=== PATIENT | female | born 1945 | race Caucasian/White ===

== ENCOUNTER 2016-10-05 01:21 | Inpatient (IN) | payer MEDICARE ==
[2016-10-05] VITALS (17 sets, daily range): BP systolic 116–172; BP diastolic 58–82; PULSE 80–94; RESP 16–20; TEMP 95.9–98.7; O2SAT 95–100
[~2016-10-05] VITALS: Ht 152.4 cm; Wt 52.2 kg
[~2016-10-05 01:21] MED LIST: ALPR.25 PO; AMBI10TA PO; CELE200C PO; CYMB30CA PO; DILA4TAB10 PO; FIORCAP6 PO; GABA600T PO; META800T81 PO; MILN50 PO; PREV15CA20 PO; [UNRECOGNIZED DRUG - CODE] OU
[2016-10-05] MEDS ORDERED: SODIUM CHLOR 0.9% 1000 ML INJ 1,000 ML IV SCH (01:45)
[2016-10-05] MEDS ORDERED: ESTR.3 PO (01:45)
[2016-10-05] MEDS ORDERED: MILN50 PO (01:45)
[2016-10-05] MEDS ORDERED: AMIT10TA6 PO (01:45)
[2016-10-05] MEDS ORDERED: MORPHINE SULFATE 4 MG/ML INJ IV PUSH ONE ×2 (01:45→03:45)
[2016-10-05] MEDS ORDERED: CELE200C PO (01:45)
[2016-10-05] MEDS ORDERED: XANA2TAB2 PO (01:45)
[2016-10-05] MEDS ORDERED: META800T81 PO (01:45)
[2016-10-05] MEDS ORDERED: DILA4TAB2 PO (01:45)
[2016-10-05] MEDS ORDERED: BUTA1CAP2 PO (01:45)
[2016-10-05] MEDS ORDERED: CYMB30CA PO (01:45)
[2016-10-05] MEDS ORDERED: AMBI10TA PO (01:45)
[2016-10-05] MEDS ORDERED: PREV30CA11 PO (01:45)
[2016-10-05] MEDS ORDERED: ONDANSETRON HCL 4 MG/2 ML VIAL IV PUSH ONE (01:45)
[2016-10-05] MEDS ORDERED: NEUR600T PO (01:45)
--- NOTE | 2016-10-05 02:22 | PD ---
HPI Chief Complaint: Fall Time Seen by Provider: 01:27 Travel History International Travel<30 days: No Contact w/Intl Traveler<30days: No Traveled to known affect area: No History of Present Illness HPI The patient is a 71 year old female who presents to the [facility] emergency department with a history of reportedly slipping and falling when she attempted to get up to go the bathroom prior to arrival. She reports that the carpet slipped out from under her. She landed on her right side. She reports that she now has right hip and right knee pain. The patient was brought in by ambulance services. The patient reportedly had shortening and external rotation of the right lower extremity. The patient denies hitting her head or losing consciousness. She denies having any neck pain, paresthesias, or weakness of her extremities. The patient was given 4 of morphine IV prior to arrival. Her sugar prior to arrival was reportedly 90. The patient reports that she does have a history of chronic back pain and is on pain medication at home, however she has not taken any since 5 PM yesterday. I review of systems, the patient denies any recent fevers, cough, congestion, neck pain, chest pain, shortness of breath, abdominal pain, vomiting, diarrhea, urinary symptoms, or neurologic symptoms. PFSH Past Medical History Narrative Medical The patient's past medical history is significant for acid reflux, anxiety disorder, fibromyalgia, chronic back pain, prior history of cerebrovascular accident, depression, migraine headaches, sleep apnea. Hx Anticoagulant Therapy: Yes (81 MG. ASA DAILY) Autoimmune Disease: No Blood Disorders: No Anxiety: Yes Depression: Yes Heart Rhythm Problems: No Cancer: No Cardiovascular Problems: No Cerebrovascular Accident: Yes Diabetes: No Diminished Hearing: No Endocrine: No Gastrointestinal Disorders: Yes (reflux) Genitourinary: No Hepatitis: No Hiatal Hernia: No Hypertension: No Immune Disorder: Yes (fibromyalgia) Musculoskeletal: Yes (arthritis all over body neck and back problems ) Neurologic: Yes (tingling right arm and hand occ right foot migraines) Psychiatric: Yes (anxiety/depression) Reproductive: No Respiratory: Yes (sleep apnea, NO CPAP) Migraines: Yes Thyroid Disease: No Tetanus Vaccination: < 5 Years Influenza Vaccination: No ?: Not Past Surgical History Narrative Surgical The patient's past surgical history is significant for hysterectomy, corneal transplant, hemorrhoidectomy, low back surgery 2, bilateral foot surgery, right shoulder surgery, right knee arthroscopy, sinus surgery, tonsil and adenoidectomy. AICD: No Body Medical Devices: hardware in the feet hardware in the spine Eye Surgery: Yes (corneal transplant once in the right eye 2 in the left eye, cataract nader.) Genitourinary Surgery: Yes (hemorroidectomy) Gynecologic Surgery: Yes (hysterectomy) Hysterectomy: Yes Joint Replacement: No Neurologic Surgery: Yes (BACK SURGERIES X 2) Oral Surgery: Yes (sinus surgery t and a) Pacemaker: No Tonsillectomy: Yes Other Surgery: Yes Social History Alcohol Use: No Tobacco Use: No Substance Use: No Allergies-Medications (Allergen,Severity, Reaction): Coded Allergies: No Known Allergies (Verified , 11/11/15) Reported Meds & Prescriptions Reported Meds & Active Scripts Active Percocet (Oxycodone-Acetaminophen) 5-325 mg Tab 1 Tab PO Q4H PRN Reported Premarin (Estrogens Conjugated) 0.3 Mg Tab 0.3 Mg PO DAILY Amitriptyline (Amitriptyline HCl) 10 Mg Tab 10 Mg PO HS Fioricet-Codeine (Nzndejlyqm-Vymyusiykbjsg-Bgjeyset-Codeine) 14-503-00-30 Mg Cap 1-2 Cap PO Q4H PRN Do not exceed 6 capsules/day. Savella (Milnacipran) 50 Mg Tab 50 Mg PO BID Cymbalta DR (Duloxetine HCl) 30 Mg Capdr 30 Mg PO HS Ambien (Zolpidem Tartrate) 10 Mg Tab 10 Mg PO HS PRN Celebrex (Celecoxib) 200 Mg Cap 200 Mg PO DAILY Prevacid (Lansoprazole) 30 Mg Capdr 30 Mg PO DAILY Skelaxin (Metaxalone) 800 Mg Tab 800 Mg PO TID Xanax (Alprazolam) 2 Mg Tab 2.5 Mg PO Q6HR Dilaudid (Hydromorphone HCl) 4 Mg Tab 4 Mg PO QID Neurontin (Gabapentin) 600 Mg Tab 600 Mg PO TID Review of Systems Except as stated in HPI: all other systems reviewed are Neg General / Constitutional: No: Fever Eyes: No: Visual changes HENT: No: Headaches, Neck Stiffness, Neck Pain Cardiovascular: No: Chest Pain or Discomfort Respiratory: No: Shortness of Breath Gastrointestinal: No: Abdominal Pain Genitourinary: No: Dysuria Musculoskeletal: Positive: Myalgias, Arthralgias, Limited ROM, Pain Skin: No Rash Neurologic: No: Weakness, Focal Abnormalities, Headache, Change in Mentation, Slurred Speech, Paresthesia Psychiatric: No: Depression Endocrine: No: Polydipsia Hematologic/Lymphatic: No: Easy Bruising Physical Exam Narrative General: The patient is a well-developed well-nourished female, uncomfortable appearing on arrival with her right hip slightly flexed, knee propped up on a pillow with shortening and external rotation of the right lower extremity noted. Head and Neck exam: Head is normocephalic atraumatic. Eyes: EOMI, pupils are equal round and reactive to light. Nose: Midline septum with pink mucous membranes Mouth: Dentition unremarkable. Moist mucus membranes. Posterior oropharynx is not erythematous. No tonsillar hypertrophy. Uvula midline. Airway patent. Neck: No palpable lymphadenopathy. No nuchal rigidity. No thyromegaly. Cardiovascular: Regular rate and rhythm without murmurs, gallops, or rubs. Lungs: Clear to auscultation bilaterally. No wheezes, rhonchi, or rales. Abdomen: Soft, without tenderness to palpation in all 4 quadrants of the abdomen. No guarding, rebound, or rigidity. Normal bowel sounds are audible. No tenderness on palpation of McBurney's point. Extremities: No clubbing, cyanosis, or edema. 2+ pulses in all 4 extremities. The patient has pain in the right groin on palpation. The patient has shortening and external rotation of the right lower extremity. The patient reports having right lateral knee pain on palpation. There is no crepitus or step off involving the right knee, right tib-fib, right ankle or right foot. The patient has decreased range of motion of the right hip. Neurologic Exam: Grossly nonfocal. Skin Exam: No rash noted. Intact skin that is warm and dry. RECTAL EXAM: No masses or tenderness, stool is brown. Hemaprompt was negative for blood. Control was positive. Data Data Last Documented VS Vital Signs Date Time Temp Pulse Resp B/P Pulse Ox O2 Delivery O2 Flow Rate FiO2 10/05/16 03:15 90 18 143/69 95 Room Air 10/05/16 01:25 98.1 Orders Electrocardiogram (10/05/16 01:37) Complete Blood Count With Diff (10/05/16 01:37) Comprehensive Metabolic Panel (10/05/16 01:37) Creatine Kinase (Cpk) (10/05/16 01:37) Ckmb (Isoenzyme) Profile (10/05/16 01:37) Troponin I (10/05/16 01:37) B-Type Natriuretic Peptide (10/05/16 01:37) Prothrombin Time / Inr (Pt) (10/05/16 01:37) Act Partial Throm Time (Ptt) (10/05/16 01:37) Urinalysis - C+S If Indicated (10/05/16 01:37) Chest, Single Ap (10/05/16 01:37) Iv Access Insert/Monitor (10/05/16 01:37) Ecg Monitoring (10/05/16 01:37) Oximetry (10/05/16 01:37) Urinary Catheter Insert/Apply (10/05/16 01:37) Hip, Uni(Ap&Lat) W Ap Pelvis (10/05/16 01:37) Ice/Cold Pack (10/05/16 01:37) Sodium Chlor 0.9% 1000 Ml Inj (Ns 1000 M (10/05/16 01:45) Morphine Inj (Morphine Inj) (10/05/16 01:45) Ondansetron Inj (Zofran Inj) (10/05/16 01:45) Knee, Complete (4vws) (10/05/16 01:48) CKMB (10/05/16 01:55) CKMB% (10/05/16 01:55) Type And Screen (10/05/16 03:31) Blood Product Administration .UPON TRANSFUSION (10/05/16 03:31) Sodium Chlor 0.9% 250 Ml Inj (Ns 250 Ml (10/05/16 03:45) Admit Order (Ed Use Only) (10/05/16 03:41) Labs Laboratory Tests Test 10/05/16 10/05/16 10/05/16 01:55 03:15 03:35 White Blood Count 13.1 TH/MM3 Red Blood Count 3.43 MIL/MM3 Hemoglobin 7.2 GM/DL Hematocrit 23.2 % Mean Corpuscular Volume 67.8 FL Mean Corpuscular Hemoglobin 21.0 PG Mean Corpuscular Hemoglobin 31.0 % Concent Red Cell Distribution Width 18.3 % Platelet Count 383 TH/MM3 Mean Platelet Volume 7.2 FL Neutrophils (%) (Auto) 83.5 % Lymphocytes (%) (Auto) 6.9 % Monocytes (%) (Auto) 8.8 % Eosinophils (%) (Auto) 0.4 % Basophils (%) (Auto) 0.4 % Neutrophils # (Auto) 11.0 TH/MM3 Lymphocytes # (Auto) 0.9 TH/MM3 Monocytes # (Auto) 1.2 TH/MM3 Eosinophils # (Auto) 0.1 TH/MM3 Basophils # (Auto) 0.1 TH/MM3 CBC Comment AUTO DIFF Differential Comment AUTO DIFF CONFIRMED Ovalocytes 2+ Blood Smear Pathologist Review Prothrombin Time 9.4 SEC Prothromb Time International 0.9 RATIO Ratio Activated Partial 21.2 SEC Thromboplast Time Sodium Level 135 MEQ/L Potassium Level 3.8 MEQ/L Chloride Level 100 MEQ/L Carbon Dioxide Level 26.6 MEQ/L Anion Gap 8 MEQ/L Blood Urea Nitrogen 6 MG/DL Creatinine 0.59 MG/DL Estimat Glomerular Filtration 101 ML/MIN Rate Random Glucose 108 MG/DL Calcium Level 8.4 MG/DL Iron Level 12 MCG/DL Total Iron Binding Capacity 490 MCG/DL Percent Iron Saturation 2.4 % Ferritin 6 NG/ML Total Bilirubin 0.1 MG/DL Aspartate Amino Transf 15 U/L (AST/SGOT) Alanine Aminotransferase 14 U/L (ALT/SGPT) Alkaline Phosphatase 74 U/L Total Creatine Kinase 120 U/L Creatine Kinase MB 1.7 NG/ML Troponin I LESS THAN 0.02 NG/ML B-Type Natriuretic Peptide 36 PG/ML Total Protein 7.0 GM/DL Albumin 3.2 GM/DL Vitamin B12 Level GREATER THAN 2000 PG/ML Folate 9.8 NG/ML Urine Color LIGHT-YELLOW Urine Turbidity CLEAR Urine pH 6.0 Urine Specific [place] 1.005 Urine Protein NEG mg/dL Urine Glucose (UA) NEG mg/dL Urine Ketones NEG mg/dL Urine Occult Blood NEG Urine Nitrite NEG Urine Bilirubin NEG Urine Urobilinogen LESS THAN 2.0 MG/DL Urine Leukocyte Esterase NEG Urine RBC 1 /hpf Urine WBC LESS THAN 1 /hpf Urine Squamous Epithelial <1 /hpf Cells Urine Bacteria RARE /hpf Microscopic Urinalysis Comment CULT NOT INDICATED Blood Type O NEGATIVE Antibody Screen NEGATIVE [facility] Medical Decision Making Medical Screen Exam Complete: Yes Emergency Medical Condition: Yes Medical Record Reviewed: Yes Interpretation(s) Last Impressions Knee X-Ray 10/05/16 0148 Signed Impressions: Service Date/Time: Wednesday, October 05, 2016 02:11 - CONCLUSION: Unremarkable examination of the right knee except for mild lateral joint space narrowing and osteophyte formation laterally. Thomas Ford MD Hip and Pelvis X-Ray 10/05/16136 Signed Impressions: Service Date/Time: Wednesday, October 05, 2016 02:11 - CONCLUSION: Impacted right intertrochanteric fracture. Thomas Ford MD Chest X-Ray 10/05/16136 Signed Impressions: Service Date/Time: Wednesday, October 05, 2016 02:03 - CONCLUSION: Normal examination. Board Certified Radiologist. This report was verified electronically. Differential Diagnosis Right hip fracture, versus pelvic fracture, versus right hip dislocation, versus right knee fracture, versus femur fracture. Narrative Course During the course of the patients emergency department visit, the patients history, examination, and differential diagnosis were reviewed with the patient. The patient had IV access obtained and blood work sent for analysis. The patient was placed on a [facility] with oximetry and blood pressure monitoring. The patient was initially provided morphine 2 mg IV, Zofran 4 mg IV, normal saline at 70 mL/h. The patients laboratory studies were reviewed and remarkable for a white count of 13.1, hemoglobin 7.2. The patient was typed and crossmatched for 4 units of packed red blood cells, 2 units to be given preoperative. The patient reports that she has been anemic in the past, however she has not been this anemic previously. A rectal examination was done which was Hemoccult negative. CMP is remarkable for sodium of 135, BUN 6, glucose 108, calcium 8.4, total bilirubin 0.1, he became 120, troponin I less than 0.02, BNP 36, PT PTT unremarkable, urinalysis unremarkable. Radiology studies were reviewed and remarkable for a right intertrochanteric fracture. Right knee x-ray showed no acute abnormality other than osteoarthritic changes, chest x-ray showed no acute abnormality. The patient reports that Dr. Beverly has done multiple orthopedic surgeries on the patient, most recently she had a surgery on her shoulder last year done by him. The patient requested that he be consulted. When I attempted to put in the consultation to him, I was notified that he no longer has privileges. I then spoke to Dr. Gary regarding this patient's intertrochanteric fracture on the right at approximate 4 AM. He will see the patient in consultation. The patients results were discussed with the patient, including the plan of care. I explained that further testing and/ or monitoring is indicated based on the patients history, examination, and/ or laboratory findings. Therefore, I recommended admission for additional evaluation. The patient expressed understanding and was agreeable with this plan. The patient was admitted to the hospital in stable condition and sent to a bed under the care of the [facility]. Diagnosis Primary Impression: Fracture, intertrochanteric, right femur Qualified Code: S72.141A - Fracture, intertrochanteric, right femur, closed, initial encounter Additional Impression: Anemia Qualified Code: D50.9 - Iron deficiency anemia, unspecified iron deficiency anemia type Admitting Information Admitting Physician Requests: Admit Scripts Oxycodone-Acetaminophen (Percocet)5-325 mg Tab1 Tab PO Q4H PRN (PAIN) #60 TAB Ref 0 Prov:Eduardo Castro Jr., MD 10/05/16 Vy Sim MD Oct 05, 2016 02:22
[2016-10-05 02:48] LABS: BASOPHIL # 0.1 TH/MM3 (0-0.2); BASOPHIL % 0.4 % (0.0-2.0); EOSINOPHIL # 0.1 TH/MM3 (0-0.4); EOSINOPHIL % 0.4 % (0.0-4.0); HEMATOCRIT 23.2 % (35.0-46.0); LYMPH % 6.9 % (9.0-44.0); LYMPHOCYTE # 0.9 TH/MM3 (1.0-4.8); MEAN CELL VOLUME 67.8 FL (80.0-100.0); MONO % 8.8 % (0.0-8.0); NEUT % 83.5 % (16.0-70.0); PLATELET COUNT 383 TH/MM3 (150-450); RED BLOOD COUNT 3.43 MIL/MM3 (4.00-5.30); RED CELL DISTRIBUTION WIDTH 18.3 % (11.6-17.2); WHITE BLOOD COUNT 13.1 TH/MM3 (4.0-11.0)
[2016-10-05 02:51] LABS: HEMO FLAGS AUTO DIFF
[2016-10-05 03:00] LABS: APTT (PATIENT) 21.2 SEC (24.3-30.1); INTERNATIONAL NORMALIZED RATIO 0.9 RATIO; PROTHROMBIN TIME - PATIENT 9.4 SEC (9.8-11.6)
--- NOTE | 2016-10-05 03:01 | RADRPT ---
EXAM DATE/TIME: 10/05/2016 02:03 [facility] COMPARISON: CHEST SINGLE AP, November 11, 2015, 13:36. INDICATIONS : Trauma, fall tonight. MEDICAL HISTORY : None. SURGICAL HISTORY : None. ENCOUNTER: Initial ACUITY: 1 day PAIN SCORE: 0/10 LOCATION: chest FINDINGS: A single view of the chest demonstrates the lungs to be symmetrically aerated without evidence of mas s, infiltrate or effusion. The cardiomediastinal contours are unremarkable. Osseous structures are intact. CONCLUSION: Normal examination. Board Certified Radiologist. This report was verified electronically.
--- NOTE | 2016-10-05 03:02 | RADRPT ---
EXAM DATE/TIME: 10/05/2016 02:11 [facility] COMPARISON: No previous studies available for comparison. INDICATIONS : Right hip pain, fall tonight. MEDICAL HISTORY : None. SURGICAL HISTORY : None. ENCOUNTER: Initial ACUITY: 1 day PAIN SCORE: 10/10 LOCATION: Right hip. FINDINGS: Examination of the right hip was performed with AP Pelvis. There is a significantly foreshortened int ertrochanteric fracture the right hip there is significant lateral angulation of the fracture. There is a fragment associated with the lesser trochanter CONCLUSION: Impacted right intertrochanteric fracture. Thomas Ford MD on October 05, 2016 at 3:00 Board Certified Radiologist. This report was verified electronically.
--- NOTE | 2016-10-05 03:03 | RADRPT ---
EXAM DATE/TIME: 10/05/2016 02:11 [facility] COMPARISON: No previous studies available for comparison. INDICATIONS : Right knee pain, fall tonight. MEDICAL HISTORY : None. SURGICAL HISTORY : None. ENCOUNTER: Initial ACUITY: 1 day PAIN SCORE: 7/10 LOCATION: Right knee. FINDINGS: Four view examination of the right knee demonstrates no evidence of fracture or dislocation. Mild la teral joint space narrowing with osteophyte formation suggesting osteoarthritis . Bony mineralization is normal. The articular surfaces are intact. The suprapatellar soft tissues have a normal configu ration. CONCLUSION: Unremarkable examination of the right knee except for mild lateral joint space narrowing and osteophy te formation laterally. Thomas Ford MD on October 05, 2016 at 3:01 Board Certified Radiologist. This report was verified electronically.
[2016-10-05 03:24] LABS: OVALOCYTES 2+ (NORMAL); SCAN/DIFF AUTO DIFF CONFIRMED
[2016-10-05 03:26] LABS: ALT (GPT) 14 U/L (10-53); ANION GAP 8 MEQ/L (5-15); AST (GOT) 15 U/L (15-37); BICARBONATE 26.6 MEQ/L (21.0-32.0); BLOOD UREA NITROGEN 6 MG/DL (7-18); CHLORIDE 100 MEQ/L (98-107); GLOMERULAR FILTRATION RATE 101 ML/MIN (>89); POTASSIUM 3.8 MEQ/L (3.5-5.1); SODIUM (NA) 135 MEQ/L (136-145)
[2016-10-05 03:29] LABS: ALKALINE PHOSPHATASE 74 U/L (45-117); CREATINE KINASE 120 U/L (26-192); TOTAL BILIRUBIN ADULT 0.1 MG/DL (0.2-1.0)
[2016-10-05 03:42] LABS: CKMB 1.7 NG/ML (0.5-3.6)
[2016-10-05] MEDS ORDERED: SODIUM CHLOR 0.9% 250 ML INJ 250 ML IV ONE ×2 (03:45→05:15)
[2016-10-05 03:46] LABS: BACTERIA, URINE RARE /hpf; BLOOD, URINE NEG (NEG); COMMENT (UR) CULT NOT INDICATED; CULTURE IF INDICATED CULT NOT INDICATED; GLUCOSE,URINE NEG (NEG); KETONE, URINE NEG (NEG); NITRITE,URINE NEG (NEG); SQUAMOUS EPITHELIAL CELL URINE <1 /hpf (0-5); URINE COLOR LIGHT-YELLOW (YELLW/STRAW)
[2016-10-05] MEDS ORDERED: NALOXONE HCL 0.4 MG/ML AMP IV PRN (04:00)
[2016-10-05] MEDS ORDERED: SODIUM CHLORIDE 0.9% FLUSH 10 ML FLUSH IV FLUSH PRN ×2 (04:00→12:00)
[2016-10-05] MEDS ORDERED: MORPHINE SULFATE 4 MG/ML INJ IV PUSH PRN (04:00)
[2016-10-05] MEDS ORDERED: ACETAMINOPHEN 325 MG TAB PO PRN ×2 (04:00→12:00)
[2016-10-05] MEDS ORDERED: ONDANSETRON HCL 4 MG/2 ML VIAL IVP PRN (04:00)
[2016-10-05] MEDS ORDERED: FUROSEMIDE 20 MG/2 ML VIAL IV ONE (05:15)
--- NOTE | 2016-10-05 05:30 | HHI.HP ---
HPI Service [facility] Primary Care Physician Elian Zamora MD Admission Diagnosis right hip fracture, Anemia Diagnoses: Chief Complaint: Fall, Hip pain. Travel History International Travel<30 Days: No Contact w/Intl Traveler <30 Da: No Traveled to Known Affected Are: No History of Present Illness 71-year-old female with a medical history significant for chronic back pain, fibromyalgia, GERD present to the hospital after a fall at home. Patient could not allow elaborate on how exactly she fell. She reports she got up to go use the bathroom and missed the cabinet she normally lean on and fell on her right side. She immediately felt pain on the right hip and has been unable to ambulate since then. She denies head trauma or loss of consciousness. She denies any focal weakness except for inability to move the right leg due to pain. The patient has been given IV morphine with improvement of her symptoms. She reports a history of anemia but does not know the etiology. Review of Systems Constitutional: DENIES: Fever, Chills Musculoskeletal: COMPLAINS OF: Joint pain, Stiffness, Back pain Neurologic: COMPLAINS OF: Abnormal gait Psychiatric: DENIES: Mood changes Except as stated in HPI: all other systems reviewed are Neg Past Family Social History Past Medical History chronic back pain, fibromyalgia, GERD Past Surgical History Surgical surgery significant for back surgery in and 1993. History of hemorrhoidectomy Hysterectomy Tonsils and adenoids Reported Medications Reported Meds & Active Scripts Active Reported Premarin (Estrogens Conjugated) 0.3 Mg Tab 0.3 Mg PO DAILY Amitriptyline (Amitriptyline HCl) 10 Mg Tab 10 Mg PO HS Fioricet-Codeine (Haqgryovnx-Nmfivhnmxwvul-Ootvmzal-Codeine) 16-453-80-30 Mg Cap 1-2 Cap PO Q4H PRN Do not exceed 6 capsules/day. Savella (Milnacipran) 50 Mg Tab 50 Mg PO BID Cymbalta DR (Duloxetine HCl) 30 Mg Capdr 30 Mg PO HS Ambien (Zolpidem Tartrate) 10 Mg Tab 10 Mg PO HS PRN Celebrex (Celecoxib) 200 Mg Cap 200 Mg PO DAILY Prevacid (Lansoprazole) 30 Mg Capdr 30 Mg PO DAILY Skelaxin (Metaxalone) 800 Mg Tab 800 Mg PO TID Xanax (Alprazolam) 2 Mg Tab 2.5 Mg PO Q6HR Dilaudid (Hydromorphone HCl) 4 Mg Tab 4 Mg PO QID Neurontin (Gabapentin) 600 Mg Tab 600 Mg PO TID Allergies: Coded Allergies: No Known Allergies (Verified , 11/11/15) Family History Reviewed and noncontributory. Social History Patient does not smoke tobacco or use alcohol Physical Exam Vital Signs Vital Signs Date Time Temp Pulse Resp B/P Pulse Ox O2 Delivery O2 Flow Rate FiO2 10/05/16 05:00 92 18 138/64 96 Room Air 10/05/16 04:26 98 21 10/05/16 04:15 88 18 137/71 97 Room Air 10/05/16 03:15 90 18 143/69 95 Room Air 10/05/16 02:30 90 18 150/77 95 Room Air 10/05/16 01:29 98 Room Air 10/05/16 01:25 98.1 93 18 131/72 98 Physical Exam GENERAL: This is a well-nourished, well-developed patient, in no apparent distress. SKIN: No rashes, ecchymoses or lesions. Cool and dry. HEAD: Atraumatic. Normocephalic. No temporal or scalp tenderness. EYES: Pupils equal round and reactive. Extraocular motions intact. No scleral icterus. No injection or drainage. ENT: Nose without bleeding, purulent drainage or septal hematoma. Throat without erythema, tonsillar hypertrophy or exudate. Uvula midline. Airway patent. NECK: Trachea midline. No JVD or lymphadenopathy. Supple, nontender, no meningeal signs. CARDIOVASCULAR: Regular rate and rhythm without murmurs, gallops, or rubs. RESPIRATORY: Clear to auscultation. Breath sounds equal bilaterally. No wheezes , rales, or rhonchi. GASTROINTESTINAL: Abdomen soft, non-tender, nondistended. No hepato-splenomegaly , or palpable masses. No guarding. MUSCULOSKELETAL: Right lower extremity is externally rotated and shortened compared to the left. No calf tenderness. Negative Homans sign bilaterally. NEUROLOGICAL: Awake and alert. Normal speech. Laboratory Laboratory Tests Test 10/05/16 10/05/16 10/05/16 01:55 03:15 03:35 White Blood Count 13.1 Red Blood Count 3.43 Hemoglobin 7.2 Hematocrit 23.2 Mean Corpuscular Volume 67.8 Mean Corpuscular Hemoglobin 21.0 Mean Corpuscular Hemoglobin 31.0 Concent Red Cell Distribution Width 18.3 Platelet Count 383 Mean Platelet Volume 7.2 Neutrophils (%) (Auto) 83.5 Lymphocytes (%) (Auto) 6.9 Monocytes (%) (Auto) 8.8 Eosinophils (%) (Auto) 0.4 Basophils (%) (Auto) 0.4 Neutrophils # (Auto) 11.0 Lymphocytes # (Auto) 0.9 Monocytes # (Auto) 1.2 Eosinophils # (Auto) 0.1 Basophils # (Auto) 0.1 CBC Comment AUTO DIFF Differential Comment AUTO DIFF CONFIRMED Ovalocytes 2+ Blood Smear Pathologist Review Prothrombin Time 9.4 Prothromb Time International 0.9 Ratio Activated Partial 21.2 Thromboplast Time Sodium Level 135 Potassium Level 3.8 Chloride Level 100 Carbon Dioxide Level 26.6 Anion Gap 8 Blood Urea Nitrogen 6 Creatinine 0.59 Estimat Glomerular Filtration 101 Rate Random Glucose 108 Calcium Level 8.4 Total Bilirubin 0.1 Aspartate Amino Transf 15 (AST/SGOT) Alanine Aminotransferase 14 (ALT/SGPT) Alkaline Phosphatase 74 Total Creatine Kinase 120 Creatine Kinase MB 1.7 Troponin I LESS THAN 0.02 B-Type Natriuretic Peptide 36 Total Protein 7.0 Albumin 3.2 Urine Color LIGHT-YELLOW Urine Turbidity CLEAR Urine pH 6.0 Urine Specific [place] 1.005 Urine Protein NEG Urine Glucose (UA) NEG Urine Ketones NEG Urine Occult Blood NEG Urine Nitrite NEG Urine Bilirubin NEG Urine Urobilinogen LESS THAN 2.0 Urine Leukocyte Esterase NEG Urine RBC 1 Urine WBC LESS THAN 1 Urine Squamous Epithelial <1 Cells Urine Bacteria RARE Microscopic Urinalysis Comment CULT NOT INDICATED Blood Type O NEGATIVE Antibody Screen NEGATIVE Result Diagram: 10/05/1615410/05/16154 Imaging Last 24 hours Impressions Knee X-Ray 10/05/16 0148 Signed Impressions: Service Date/Time: Wednesday, October 05, 2016 02:11 - CONCLUSION: Unremarkable examination of the right knee except for mild lateral joint space narrowing and osteophyte formation laterally. Thomas Ford MD Hip and Pelvis X-Ray 10/05/16 0137 Signed Impressions: Service Date/Time: Wednesday, October 05, 2016 02:11 - CONCLUSION: Impacted right intertrochanteric fracture. Thomas Ford MD Chest X-Ray 10/05/16 0137 Signed Impressions: Service Date/Time: Wednesday, October 05, 2016 02:03 - CONCLUSION: Normal examination. Board Certified Radiologist. This report was verified electronically. MD Assessment and Plan Problem List: (1) Anemia ICD Code: D64.9 Status: Acute (2) Anxiety ICD Code: F41.9 Status: Acute (3) Fibromyalgia ICD Code: M79.7 Status: Acute (4) Osteoarthritis ICD Code: M19.90 Status: Acute Assessment and Plan 71-year-old female with: Right hip fracture: Mechanical fall. I question whether or not she may be oversedated in the middle of the night. She is on multiple anxiolytics including Xanax and Ambien, in addition to multiple pain medications including Dilaudid and Fioricet/codeine. Will advise weaning down some of these medications as tolerated. - Consult orthopedic surgery for assistance - Pain control may be a challenge as her med list include Dilaudid 4 mg 4 times a day, multiple anxiolytics and she has had chronic pain. Microcytic anemia: Etiology unknown. - Obtain iron studies. - We'll request pathologist to review the peripheral smear - Give 2 units of PRBC now in follow-up H&H. Fibromyalgia: - Continue Cymbalta and Savella Anxiety/depression: We'll decrease Xanax to 1 mg every 6 hours as needed. Continue to monitor and titrate as needed. Continue amitriptyline Chronic back pain: - Patient currently on morphine IV as needed GERD: Continue Prevacid GI prophylaxis: PPI. Stool softener PRN constipation. DVT PPx: SCDs. Physician Certification 2 Midnight Certification Type: Admission for Inpatient Services Order for Inpatient Services The services are ordered in accordance with Medicare regulations or non- Medicare payer requirements, as applicable. In the case of services not specified as inpatient-only, they are appropriately provided as inpatient services in accordance with the 2-midnight benchmark. Estimated LOS (days): 3 days is the estimated time the patient will need to remain in the hospital, assuming treatment plan goals are met and no additional complications. Post-Hospital Plan: Not yet determined Dahiana Qureshi MD Oct 05, 2016 05:30
[2016-10-05] MEDS: MORPHINE SULFATE 4 MG/ML INJ IV PUSH PRN ×2 (06:10→10:09)
[2016-10-05] MEDS ORDERED: ZOLPIDEM TARTRATE 5 MG TAB PO PRN (07:15)
[2016-10-05 07:37] LABS: TRANSFERRIN IRON PROFILE 350 MG/DL (200-360)
--- NOTE | 2016-10-05 07:40 | HHI.PR ---
Subjective Remarks in no acute distress. but complaining of severe pain to the right hip. blood transfusion in process. d/w the RN. Objective Vitals Vital Signs Date Time Temp Pulse Resp B/P Pulse Ox O2 Delivery O2 Flow Rate FiO2 10/05/16 07:21 98 21 10/05/16 06:13 98.3 94 18 136/77 100 Room Air 10/05/16 05:58 98.4 86 18 143/71 98 Room Air 10/05/16 05:00 92 18 138/64 96 Room Air 10/05/16 04:26 98 21 10/05/16 04:15 88 18 137/71 97 Room Air 10/05/16 03:15 90 18 143/69 95 Room Air 10/05/16 02:30 90 18 150/77 95 Room Air 10/05/16 01:29 98 Room Air 10/05/16 01:25 98.1 93 18 131/72 98 Result Diagram: 10/05/16 0155 10/05/16 0155 Imaging Last Impressions Knee X-Ray 10/05/16 0148 Signed Impressions: Service Date/Time: Wednesday, October 05, 2016 02:11 - CONCLUSION: Unremarkable examination of the right knee except for mild lateral joint space narrowing and osteophyte formation laterally. Thomas Ford MD Hip and Pelvis X-Ray 10/05/16136 Signed Impressions: Service Date/Time: Wednesday, October 05, 2016 02:11 - CONCLUSION: Impacted right intertrochanteric fracture. Thomas Ford MD Chest X-Ray 10/05/16136 Signed Impressions: Service Date/Time: Wednesday, October 05, 2016 02:03 - CONCLUSION: Normal examination. Board Certified Radiologist. This report was verified electronically. Objective Remarks GENERAL: This is a well-nourished, well-developed patient, in no apparent distress. CARDIOVASCULAR: Regular rate and regular rhythm without murmurs, gallops, or rubs. RESPIRATORY: Clear to auscultation. Breath sounds equal bilaterally. No wheezes , rales, or rhonchi. GASTROINTESTINAL: Abdomen soft, non-tender, nondistended. Normal, active bowel sounds MUSCULOSKELETAL: Extremities without clubbing, cyanosis, or edema. NEURO: Alert & Oriented x4 to person, place, time, situation. Moves all ext x4 Medications and IVs Current Medications Sodium Chloride (NS 1000 ml Inj) 1,000 ml @ 100 mls/hr Q10H IV Last administered on 10/05/16 02:04; Start 10/05/16 at 01:45; Stop 10/05/16 at 04:05 ; Status DC Morphine Sulfate (Morphine Inj) 2 mg ONCE ONCE IV PUSH Last administered on 02:04; Start 10/05/16 at 01:45; Stop 10/05/16 at 01:46; Status DC Ondansetron HCl 4 mg 4 mg ONCE ONCE IV PUSH Last administered on 10/05/16 02: 05; Start 10/05/16 at 01:45; Stop 10/05/16 at 01:46; Status DC Sodium Chloride (NS 250 ml Inj) 250 ml @ 15 mls/hr ONCE ONCE IV Last administered on 10/05/16 06:01; Start 10/05/16 at 03:45; Stop 10/05/16 at 20:24 Morphine Sulfate 4 mg 4 mg ONCE ONCE IV PUSH Last administered on 10/05/16 03 :55; Start 10/05/16 at 03:45; Stop 10/05/16 at 03:46; Status DC Sodium Chloride (NS 1000 ml Inj) 1,000 ml @ 42 mls/hr [id number] IV ; Start at 03:59 Sodium Chloride (NS Flush) 2 ml UNSCH PRN IV FLUSH FLUSH AFTER USING IV ACCESS ; Start 10/05/16 at 04:00 Sodium Chloride (NS Flush) 2 ml BID IV FLUSH ; Start 10/05/16 at 09:00 Acetaminophen (Tylenol) 650 mg Q4H PRN PO TEMP > 100.4; Start 10/05/16 at 04:00 Ondansetron HCl (Zofran Inj) 4 mg Q6H PRN IVP NAUSEA OR VOMITING; Start at 04:00 Naloxone HCl (Narcan Inj) 0.4 mg UNSCH PRN IV SEE LABEL COMMENTS; Start at 04:00 Morphine Sulfate 2 mg 2 mg Q4H PRN IV PUSH PAIN SCALE 4 TO 10; Start 10/05/16 at 04:00; Stop 10/05/16 at 05:12; Status DC Sodium Chloride (NS 250 ml Inj) 250 ml @ 15 mls/hr ONCE ONCE IV ; Start at 05:15; Stop 10/05/16 at 21:54 Furosemide (Lasix Inj) 20 mg ONCE ONCE IV ; Start 10/05/16 at 05:15; Stop 10/05 at 05:16; Status DC Morphine Sulfate (Morphine Inj) 4 mg Q4H PRN IV PUSH PAIN SCALE 4 TO 10 Last administered on 10/05/16t 06:10; Start 10/05/16 at 08:00 Amitriptyline HCl (Elavil) 10 mg HS PO ; Start 10/05/16 at 21:00 Duloxetine HCl (Cymbalta Dr) 30 mg HS PO ; Start 10/05/16 at 21:00 Gabapentin (Neurontin) 600 mg TID PO ; Start 10/05/16 at 09:00 Metaxalone (Skelaxin) 800 mg TID PO ; Start 10/05/16 at 09:00 Non-Formulary Medication 30 mg DAILY PO ; Start 10/05/16 at 09:00; Status UNV Non-Formulary Medication 50 mg BID PO Fibromyalgia; Start 10/05/16 at 09:00; Status UNV Alprazolam (Xanax) 1 mg Q6H PRN PO SEVERE ANXIETY; Start 10/05/16 at 07:00 Zolpidem Tartrate (Ambien) 5 mg HS PRN PO INSOMNIA; Start 10/05/16 at 07:15; Status UNV A/P Assessment and Plan A/P Right hip fracture: Mechanical fall. She is on multiple anxiolytics including Xanax and Ambien, in addition to multiple pain medications including Dilaudid and Fioricet/codeine. Will advise weaning down some of these medications as tolerated. - Consulted orthopedic surgery. - Pain control may be a challenge as her med list include Dilaudid 4 mg 4 times a day, multiple anxiolytics and she has had chronic pain. Microcytic anemia: Etiology unknown. - Obtain iron studies/ stool for blood pending. - requested pathologist to review the peripheral smear - PRBC transfusion in progress -will continue to monitor H/H- Fibromyalgia: - Continue Cymbalta and Savella Anxiety/depression: decreased Xanax to 1 mg every 6 hours as needed. Continue to monitor and titrate as needed. Continue amitriptyline Chronic back pain: - Patient currently on morphine IV as needed GERD: Continue Prevacid GI prophylaxis: PPI. Stool softener PRN constipation. DVT PPx: SCDs. Greta Conley MD Oct 05, 2016 07:40
[2016-10-05 08:02] LABS: FERRITIN 6 NG/ML (8-252)
[2016-10-05] MEDS: SODIUM CHLOR 0.9% 1000 ML INJ 1,000 ML IV SCH (08:23)
[2016-10-05] MEDS: METAXALONE 800 MG TAB PO SCH ×3 (09:00→18:00)
[2016-10-05] MEDS ORDERED: SODIUM CHLORIDE 0.9% FLUSH 10 ML FLUSH IV FLUSH SCH (09:00)
[2016-10-05] MEDS ORDERED: HYDROmorphone HCL PF 1 MG/ML VIAL IV PUSH ONE (09:00)
[2016-10-05] MEDS: GABAPENTIN 300 MG CAP PO SCH ×3 (09:00→18:18)
[2016-10-05] MEDS ORDERED: PILL SPLITTER OTHER PRN (09:15)
[2016-10-05] MEDS: PANTOPRAZOLE SOD 40 MG DELAYED RELEASE TAB PO SCH (09:15)
[2016-10-05] MEDS: MILNACIPRAN 100 MG TAB PO SCH ×2 (09:15→22:42)
[2016-10-05] MEDS ORDERED: PROPOFOL 200 MG/20 ML AMP IV ONE (09:45)
[2016-10-05] MEDS ORDERED: PHENYLEPH/NS 1000 MCG/10 ML SYR IV ONE (09:46)
--- NOTE | 2016-10-05 11:31 | EKG ---
Date Performed: 10/05/2016 Time Performed: 01:38:54 PTAGE: 71 years EKG: Sinus rhythm NORMAL ECG NO PREVIOUS TRACING DOCTOR: Danilo Mendoza Interpretating Date/Time 10/05/2016 11:29:29
[2016-10-05] MEDS ORDERED: PERC5TAB12 PO (11:49)
--- NOTE | 2016-10-05 11:55 | PD.CONS ---
cc: Eduardo Castro Jr., MD HPI Service Orthopedic Surgeons Consult Requested By Primary Care Physician Elian Zamora MD Admission Diagnosis right hip fracture, Anemia Diagnoses: (1) Anemia (2) Anxiety (3) Fibromyalgia (4) Osteoarthritis Chief Complaint: right hip fracture History of Present Illness 71yo female, phmx of chronic back pain, anemia, fibromyalgia, GERD present to the hospital after a fall at home while getting up to go to restroom. she experienced right hip 9/10 and inability to bear weight. pain is nonradiating, localized at the hip, exacerbated by ROM, WB, not associated with neuro symptoms. She denies head trauma or loss of consciousness. She denies any focal weakness. ROS - General Review of Systems Constitutional: DENIES: Fever, Chills Musculoskeletal: COMPLAINS OF: Joint pain, Stiffness, Back pain Neurologic: COMPLAINS OF: Abnormal gait Psychiatric: DENIES: Mood changes Except as stated in HPI: all other systems reviewed are Neg PFSH Past Family Social History Past Medical History chronic back pain, fibromyalgia, GERD Past Surgical History Surgical surgery significant for back surgery in and 1993. History of hemorrhoidectomy Hysterectomy Tonsils and adenoids Reported Medications Reported Meds & Active Scripts Active Reported Premarin (Estrogens Conjugated) 0.3 Mg Tab 0.3 Mg PO DAILY Amitriptyline (Amitriptyline HCl) 10 Mg Tab 10 Mg PO HS Fioricet-Codeine (Icktcpkuwm-Moqbwdkdnzoxl-Tlifoflh-Codeine) 79-361-53-30 Mg Cap 1-2 Cap PO Q4H PRN Do not exceed 6 capsules/day. Savella (Milnacipran) 50 Mg Tab 50 Mg PO BID Cymbalta DR (Duloxetine HCl) 30 Mg Capdr 30 Mg PO HS Ambien (Zolpidem Tartrate) 10 Mg Tab 10 Mg PO HS PRN Celebrex (Celecoxib) 200 Mg Cap 200 Mg PO DAILY Prevacid (Lansoprazole) 30 Mg Capdr 30 Mg PO DAILY Skelaxin (Metaxalone) 800 Mg Tab 800 Mg PO TID Xanax (Alprazolam) 2 Mg Tab 2.5 Mg PO Q6HR Dilaudid (Hydromorphone HCl) 4 Mg Tab 4 Mg PO QID Neurontin (Gabapentin) 600 Mg Tab 600 Mg PO TID Allergies: Coded Allergies: No Known Allergies (Verified , 11/11/15) Family History Reviewed and noncontributory. Social History Patient does not smoke tobacco or use alcohol Past Family Social History Past Medical History chronic back pain, fibromyalgia, GERD Past Surgical History Surgical surgery significant for back surgery in and 1993. History of hemorrhoidectomy Hysterectomy Tonsils and adenoids Allergies: Coded Allergies: No Known Allergies (Verified , 11/11/15) Active Ordered Medications Current Medications Medications (Trade) Dose Ordered Sig/Lawrence Route Start Time Stop Time Status Last Admin Sodium Chloride 250 ml @ 15 mls/hr ONCE ONCE IV 10/05/16 03:45 10/05/16 20:24 10/05/16 06:01 (NS 1000 ml Inj) 1,000 ml @ 42 mls/hr [id number] IV 10/05/16 03:59 10/05/16 08:23 (NS Flush) 2 ml UNSCH PRN IV FLUSH 10/05/16 04:00 (NS Flush) 2 ml BID IV FLUSH 10/05/16 09:00 (Tylenol) 650 mg Q4H PRN PO 10/05/16 04:00 (Zofran Inj) 4 mg Q6H PRN IVP 10/05/16 04:00 Naloxone HCl 0.4 mg 0.4 mg UNSCH PRN IV 10/05/16 04:00 (NS 250 ml Inj) 250 ml @ 15 mls/hr ONCE ONCE IV 10/05/16 05:15 10/05/16 21:54 10/05/16 09:32 (Elavil) 10 mg HS PO 10/05/16 21:00 (Cymbalta Dr) 30 mg HS PO 10/05/16 21:00 (Neurontin) 600 mg TID PO 10/05/16 09:00 (Skelaxin) 800 mg TID PO 10/05/16 09:00 (Protonix) 40 mg DAILY PO 10/05/16 09:15 (Savella) 50 mg BID PO 10/05/16 09:15 (Xanax) 1 mg Q6H PRN PO 10/05/16 07:00 (Ambien) 5 mg HS PRN PO 10/05/16 07:15 (Pill Splitter) 1 ea UNSCH PRN OTHER 10/05/16 09:15 (Dilaudid Pf Inj) 1 mg Q4H PRN IV PUSH 10/05/16 12:00 Reported Meds & Active Scripts Active Percocet (Oxycodone-Acetaminophen) 5-325 mg Tab 1 Tab PO Q4H PRN Reported Premarin (Estrogens Conjugated) 0.3 Mg Tab 0.3 Mg PO DAILY Amitriptyline (Amitriptyline HCl) 10 Mg Tab 10 Mg PO HS Fioricet-Codeine (Cidkektcfq-Xutvlhaakctgh-Vrqmdvxl-Codeine) 91-346-03-30 Mg Cap 1-2 Cap PO Q4H PRN Do not exceed 6 capsules/day. Savella (Milnacipran) 50 Mg Tab 50 Mg PO BID Cymbalta DR (Duloxetine HCl) 30 Mg Capdr 30 Mg PO HS Ambien (Zolpidem Tartrate) 10 Mg Tab 10 Mg PO HS PRN Celebrex (Celecoxib) 200 Mg Cap 200 Mg PO DAILY Prevacid (Lansoprazole) 30 Mg Capdr 30 Mg PO DAILY Skelaxin (Metaxalone) 800 Mg Tab 800 Mg PO TID Xanax (Alprazolam) 2 Mg Tab 2.5 Mg PO Q6HR Dilaudid (Hydromorphone HCl) 4 Mg Tab 4 Mg PO QID Neurontin (Gabapentin) 600 Mg Tab 600 Mg PO TID Family History Reviewed and noncontributory. Social History Patient does not smoke tobacco or use alcohol Physical Exam Vital Signs Vital Signs Date Time Temp Pulse Resp B/P Pulse Ox O2 Delivery O2 Flow Rate FiO2 10/05/16 09:30 98.6 88 20 147/66 95 Room Air 10/05/16 09:12 98.7 85 20 162/75 95 Room Air 10/05/16 09:09 98.7 89 20 162/75 97 Room Air 10/05/16 08:23 18 10/05/16 07:34 88 18 168/79 99 Room Air 10/05/16 07:21 98 21 10/05/16 06:13 98.3 94 18 136/77 100 Room Air 10/05/16 05:58 98.4 86 18 143/71 98 Room Air 10/05/16 05:00 92 18 138/64 96 Room Air 10/05/16 04:26 98 21 10/05/16 04:15 88 18 137/71 97 Room Air 10/05/16 03:15 90 18 143/69 95 Room Air 10/05/16 02:30 90 18 150/77 95 Room Air 10/05/16 01:29 98 Room Air 10/05/16 01:25 98.1 93 18 131/72 98 Physical Exam neck: midline trachea head; nc/at chest: normal resp efforts abd: soft RLE: nvi, ext rotated, +log roll, SILT distally, 2+ PT/DP, neg homans Laboratory Laboratory Tests Test 10/05/16 10/05/16 10/05/16 10/05/16 01:55 03:15 03:35 05:12 White Blood Count 13.1 Red Blood Count 3.43 Hemoglobin 7.2 Hematocrit 23.2 Mean Corpuscular Volume 67.8 Mean Corpuscular Hemoglobin 21.0 Mean Corpuscular Hemoglobin 31.0 Concent Red Cell Distribution Width 18.3 Platelet Count 383 Mean Platelet Volume 7.2 Neutrophils (%) (Auto) 83.5 Lymphocytes (%) (Auto) 6.9 Monocytes (%) (Auto) 8.8 Eosinophils (%) (Auto) 0.4 Basophils (%) (Auto) 0.4 Neutrophils # (Auto) 11.0 Lymphocytes # (Auto) 0.9 Monocytes # (Auto) 1.2 Eosinophils # (Auto) 0.1 Basophils # (Auto) 0.1 CBC Comment AUTO DIFF Differential Comment AUTO DIFF CONFIRMED Ovalocytes 2+ Blood Smear Pathologist Review Prothrombin Time 9.4 Prothromb Time International 0.9 Ratio Activated Partial 21.2 Thromboplast Time Sodium Level 135 Potassium Level 3.8 Chloride Level 100 Carbon Dioxide Level 26.6 Anion Gap 8 Blood Urea Nitrogen 6 Creatinine 0.59 Estimat Glomerular Filtration 101 Rate Random Glucose 108 Calcium Level 8.4 Iron Level 12 Total Iron Binding Capacity 490 Percent Iron Saturation 2.4 Ferritin 6 Total Bilirubin 0.1 Aspartate Amino Transf 15 (AST/SGOT) Alanine Aminotransferase 14 (ALT/SGPT) Alkaline Phosphatase 74 Total Creatine Kinase 120 Creatine Kinase MB 1.7 Troponin I LESS THAN 0.02 B-Type Natriuretic Peptide 36 Total Protein 7.0 Albumin 3.2 Vitamin B12 Level GREATER THAN 2000 Folate 9.8 Urine Color LIGHT-YELLOW Urine Turbidity CLEAR Urine pH 6.0 Urine Specific Squires 1.005 Urine Protein NEG Urine Glucose (UA) NEG Urine Ketones NEG Urine Occult Blood NEG Urine Nitrite NEG Urine Bilirubin NEG Urine Urobilinogen LESS THAN 2.0 Urine Leukocyte Esterase NEG Urine RBC 1 Urine WBC LESS THAN 1 Urine Squamous Epithelial <1 Cells Urine Bacteria RARE Microscopic Urinalysis Comment CULT NOT INDICATED Blood Type O NEGATIVE Antibody Screen NEGATIVE Crossmatch Leukocyte-Reduced Red Blood Cells Blood Bank Comment Result Diagram: 10/05/16 0155 10/05/16 0155 Assessment & Plan Assessment and Plan 71-year-old female relatively healthy status post fall at home while getting out of bed sustaining a right closed intertrochanteric femur fracture. the Fracture is unstable and requires intramedullary clotilde fixation. I discussed my treatment plans with the patient, as well as risks, benefits and alternatives of surgical Intervention versus nonoperative treatment. In this case, the risks of operative intervention involves bleeding, infection, risks of damage to neurovascular structures, the risk of needing further surgery, posttraumatic arthritis and the risks involved with complication from anesthesia. We will proceed with the above procedure. The patient accepts these risks; understands and agrees with my recommendations. I also discussed my proposed postoperative care and follow-up plan. All questions were answered. Plan for OR []. Nothing by mouth []. Patient consented. Thanks for the consult, thanks for allowing me to participate in this patient's medical care. Eduardo Castro Jr., MD Oct 05, 2016 11:55
[2016-10-05] MEDS ORDERED: PROMETHAZINE HCL 25 MG TAB PO PRN (12:00)
[2016-10-05] MEDS ORDERED: oxyCODONE/ACETAMINOPHEN 5 MG/325 MG TAB PO PRN ×2 (12:00)
[2016-10-05] MEDS ORDERED: Post-op Orders (for Pharmacy) MISC XX ONE (12:00)
[2016-10-05] MEDS ORDERED: HYDROmorphone HCL PF 1 MG/ML VIAL IV PUSH PRN (12:00)
[2016-10-05] MEDS ORDERED: MORPHINE SULFATE 8 MG/ML INJ IV PUSH PRN (12:00)
[2016-10-05] MEDS ORDERED: MIDAZOLAM HCL 2 MG/2 ML VIAL ONE (12:05)
[2016-10-05] MEDS ORDERED: DEXAMETHASONE SOD PHOS 4 MG/ML VIAL ONE (12:05)
[2016-10-05] MEDS ORDERED: ACETAMINOPHEN 1000 MG/100 ML VIAL IV ONE (12:05)
[2016-10-05] MEDS ORDERED: ceFAZolin INJ 1,000 MG VIAL ONE (12:42)
[2016-10-05] MEDS ORDERED: KETOROLAC TROMETHAMINE 30 MG/ML (IVP) VIAL IVP SCH (13:00)
--- NOTE | 2016-10-05 14:30 | RADRPT ---
EXAM DATE/TIME: 10/05/2016 13:44 [facility] COMPARISON: HIP RIGHT (AP&LAT 2/3VWS) W AP PELVIS, October 05, 2016, 2:11. INDICATIONS : Post-op ORIF right hip fracture. MEDICAL HISTORY : None. SURGICAL HISTORY : None. ENCOUNTER: Initial ACUITY: 1 day PAIN SCORE: Non-responsive. LOCATION: Right hip. FINDINGS: Intramedullary clotilde traverses the femur with proximal distal fixation screws. There is gross anatomic alignment of the fracture fragments. IMPRESSION: Intact to immediate postoperative study. Shad Arboleda MD on October 05, 2016 at 14:27 Board Certified Radiologist. This report was verified electronically.
[2016-10-05] MEDS ORDERED: *ENALAPRILAT 1.25 MG/ML VIAL PERIprocedural Use ONLY ONE (14:34)
[2016-10-05] MEDS ORDERED: *morphine SULFATE 8 MG/ML PERIprocedure ONLY ONE (14:38)
[2016-10-05] MEDS ORDERED: *ONDANSETRON 4 MG VIAL PERIprocedural Use ONLY ONE (14:50)
[2016-10-05] MEDS ORDERED: *MEPERIDINE 25 MG INJ VIAL PERIprocedural Use ONLY ONE (14:57)
[2016-10-05] MEDS ORDERED: DO NOT ADM ANY ANTICOAGULANT DRUGS PRN (15:00)
[2016-10-05] MEDS: KETOROLAC TROMETHAMINE 30 MG/ML (IVP) VIAL IVP SCH ×2 (16:18→22:41)
[2016-10-05] MEDS: HYDROmorphone HCL 4 MG TAB PO SCH ×2 (18:17→22:40)
[2016-10-05] MEDS: DULoxetine HCl DR 30 MG CAP PO SCH (22:42)
[2016-10-05] MEDS: SODIUM CHLORIDE 0.9% FLUSH 10 ML FLUSH IV FLUSH SCH (22:48)
[2016-10-06] VITALS (8 sets, daily range): BP systolic 89–136; BP diastolic 49–63; PULSE 50–100; RESP 16–17; TEMP 95.2–98.8; O2SAT 96–100
[2016-10-06] MEDS: AMITRIPTYLINE HCL 10 MG TAB PO SCH ×2 (01:48→20:32)
[2016-10-06] MEDS: ENOXAPARIN SODIUM 30 MG/0.3 ML SYRINGE SQ SCH ×2 (01:49→12:48)
[2016-10-06] MEDS: HYDROmorphone HCL PF 1 MG/ML VIAL IV PUSH PRN ×5 (01:51→21:00)
[2016-10-06] MEDS: ZOLPIDEM TARTRATE 5 MG TAB PO PRN ×2 (01:52→23:30)
[2016-10-06] MEDS: SODIUM CHLOR 0.9% 1000 ML INJ 1,000 ML IV SCH (03:48)
[2016-10-06] MEDS: KETOROLAC TROMETHAMINE 30 MG/ML (IVP) VIAL IVP SCH ×4 (05:34→23:30)
[2016-10-06 07:18] LABS: AUTOMATED NEUTROPHIL # 3.9 TH/MM3 (1.8-7.7); BASOPHIL # 0.1 TH/MM3 (0-0.2); BASOPHIL % 0.8 % (0.0-2.0); EOSINOPHIL # 0.1 TH/MM3 (0-0.4); EOSINOPHIL % 1.2 % (0.0-4.0); HEMATOCRIT 28.3 % (35.0-46.0); LYMPH % 25.3 % (9.0-44.0); LYMPHOCYTE # 1.7 TH/MM3 (1.0-4.8); MEAN CELL VOLUME 71.5 FL (80.0-100.0); MEAN CORPUSCULAR HEMOGLOBIN 23.1 PG (27.0-34.0); MEAN CORPUSCULAR HGB CONC 32.2 % (32.0-36.0); MONO % 15.7 % (0.0-8.0); PLATELET COUNT 271 TH/MM3 (150-450); RED BLOOD COUNT 3.96 MIL/MM3 (4.00-5.30); RED CELL DISTRIBUTION WIDTH 20.4 % (11.6-17.2); WHITE BLOOD COUNT 6.8 TH/MM3 (4.0-11.0)
[2016-10-06 07:25] LABS: HEMO FLAGS AUTO DIFF
[2016-10-06 07:46] LABS: BICARBONATE 29.7 MEQ/L (21.0-32.0); POTASSIUM 3.4 MEQ/L (3.5-5.1)
[2016-10-06] MEDS: MILNACIPRAN 100 MG TAB PO SCH ×2 (08:25→20:31)
[2016-10-06] MEDS: GABAPENTIN 300 MG CAP PO SCH ×3 (08:26→17:32)
[2016-10-06] MEDS: PANTOPRAZOLE SOD 40 MG DELAYED RELEASE TAB PO SCH (08:26)
[2016-10-06] MEDS: DOCUSATE SODIUM 50 MG/SENNA 8.6 MG TAB PO SCH ×2 (08:26→20:32)
[2016-10-06] MEDS: HYDROmorphone HCL 4 MG TAB PO SCH ×4 (08:26→23:30)
[2016-10-06] MEDS: POLYETHYLENE GLYCOL 17 GM PKG PO SCH (08:27)
[2016-10-06] MEDS: METAXALONE 800 MG TAB PO SCH ×3 (08:27→17:33)
[2016-10-06 08:31] LABS: SCAN/DIFF AUTO DIFF CONFIRMED
[2016-10-06] MEDS ORDERED: DOCU100C PO (08:32)
--- NOTE | 2016-10-06 10:55 | HHI.PR ---
Subjective Remarks In bed. Says pain is better controlled. Hopes for more PT today. No fevers or chills. No sob or chest pain. No BM yet. Objective Vitals Vital Signs Date Time Temp Pulse Resp B/P Pulse Ox O2 Delivery O2 Flow Rate FiO2 10/06/16 07:19 98.7 82 17 112/59 96 10/06/16 04:00 98.4 88 16 110/59 97 10/06/16 00:00 98.4 82 16 136/63 98 10/05/16 20:45 98.1 80 16 116/58 99 10/05/16 20:26 99 Nasal Cannula 2.00 10/05/16 19:07 Nasal Cannula 2.00 10/05/16 15:36 95.9 82 16 137/80 99 10/05/16 15:15 98.7 75 16 140/65 95 Nasal Cannula 2 10/05/16 15:00 81 15 168/90 97 Nasal Cannula 2 10/05/16 14:45 89 16 172/101 95 Nasal Cannula 2 10/05/16 14:30 86 14 181/102 96 Nasal Cannula 2 10/05/16 14:23 98.6 89 16 181/97 95 Nasal Cannula 2 I/O 10/05/16 10/05/16 10/05/16 10/06/16 10/06/16 10/06/16 07:00 15:00 23:00 07:00 15:00 23:00 Intake Total 750 ml 240 ml 1060 ml Output Total 4300 ml 1250 ml 250 ml Balance -3550 ml -1010 ml 810 ml Intake Oral 0 ml 240 ml IV Total 1060 ml Packed Cells 250 ml Other 500 ml Output Urine Total 4250 ml 1250 ml 250 ml Estimated Blood Loss 50 ml # Voids 0 # Bowel Movements 0 0 Result Diagram: 10/06/16 0650 10/06/16 0650 Imaging Last Impressions Knee X-Ray 10/05/16 0148 Signed Impressions: Service Date/Time: Wednesday, October 05, 2016 02:11 - CONCLUSION: Unremarkable examination of the right knee except for mild lateral joint space narrowing and osteophyte formation laterally. Thomas Ford MD Hip and Pelvis X-Ray 10/05/16 0137 Signed Impressions: Service Date/Time: Wednesday, October 05, 2016 02:11 - CONCLUSION: Impacted right intertrochanteric fracture. Thomas Ford MD Chest X-Ray 10/05/16 0137 Signed Impressions: Service Date/Time: Wednesday, October 05, 2016 02:03 - CONCLUSION: Normal examination. Board Certified Radiologist. This report was verified electronically. Objective Remarks GENERAL: This is a pleasant 71 yo F , appears younger than the stated age, well- nourished, well-developed patient, in no apparent distress. CARDIOVASCULAR: Regular rate and regular rhythm without murmurs, gallops, or rubs. RESPIRATORY: Clear to auscultation. Breath sounds equal bilaterally. No wheezes , rales, or rhonchi. GASTROINTESTINAL: Abdomen soft, non-tender, nondistended. Normal, active bowel sounds MUSCULOSKELETAL: Extremities without clubbing, cyanosis, or edema. NEURO: Alert & Oriented x4 to person, place, time, situation. Moves all ext x4 A/P Problem List: (1) Anemia ICD Code: D64.9 Status: Acute (2) Anxiety ICD Code: F41.9 Status: Acute (3) Fibromyalgia ICD Code: M79.7 Status: Acute (4) Osteoarthritis ICD Code: M19.90 Status: Acute Assessment and Plan Right hip fracture: Mechanical fall. She is on multiple anxiolytics including Xanax and Ambien, in addition to multiple pain medications including Dilaudid and Fioricet/codeine. Will advise weaning down some of these medications as tolerated. - Consulted orthopedic surgery. - Pain control may be a challenge as her med list include Dilaudid 4 mg 4 times a day, multiple anxiolytics and she has had chronic pain. Microcytic anemia: Patient with severe iron deficiency anemia. Iron study reviewed. - requested pathologist to review the peripheral smear, reveal microcytic hypochromic anemia - S/P PRBC transfusion, HGB of 9.2 after transfusion - Start iron transfusion. -Monitor H/H- Fibromyalgia: - Continue Cymbalta and Savella Anxiety/depression: decreased Xanax to 1 mg every 6 hours as needed. Continue to monitor and titrate as needed. Continue amitriptyline Chronic back pain: - Patient currently on morphine IV as needed GERD: Continue Prevacid GI prophylaxis: PPI. Stool softener PRN constipation. DVT PPx: SCDs. Discussed with the patient, nurse, PT Problem Qualifiers (1) Anemia: Qualified Code: D50.9 - Iron deficiency anemia, unspecified iron deficiency anemia type Aparna Lyle MD Oct 06, 2016 10:55
[2016-10-06] MEDS ORDERED: POTASSIUM CHLORIDE 20 MEQ CONTROLLED RELEASE TAB PO ONE (15:00)
[2016-10-06] MEDS: IRON SUCROSE INJ 200 MG in SODIUM CHLORIDE 0.9% INJ 100 ML IV SCH (15:10)
[2016-10-06] MEDS: DULoxetine HCl DR 30 MG CAP PO SCH (20:31)
[2016-10-06] MEDS: MULTIVITAMINS/MINERALS THERAPEUTIC TAB PO SCH (20:32)
[2016-10-06] MEDS: DOCUSATE SODIUM 100 MG CAP PO SCH (20:32)
[2016-10-06] MEDS: SODIUM CHLORIDE 0.9% FLUSH 10 ML FLUSH IV FLUSH SCH (20:33)
--- NOTE | 2016-10-06 20:34 | PD.OP ---
cc: Eduardo Castro Jr., MD Operative Report Date of Surgery: Oct 05, 2016 Preoperative Diagnosis: right intertroch femur fracture, closed Postoperative Diagnosis: Same Procedure: Right hip intramedullary clotilde fixation Anesthesia: Gen. Surgeon: Eduardo Castro Veneer Taping Machine Operator(s): staff Resident Surgeon: None Operation and Findings: The patient received intravenous. After the appropriate anesthesia was administered, and the patient was transferred to the fracture table. The fracture was anatomically reduced under fluoroscopic imaging. The RIGHT hip was prepped and draped in usual sterile fashion. We made incision just proximal to the tip of the greater trochanter. We dissected down through the deep fascia. We used a threaded guidewire at the tip of the greater trochanter which was placed down to the metaphyseal region on both the AP and lateral views. We reamed proximally. Using fluoroscopic analysis we templated the appropriate size for the short nail. This nail was then placed into position under fluoroscopic guidance. We made incision laterally based on the position of the associated jig. We then placed a threaded guidewire into the center, center of the femoral head. The appropriate length for the screw was measured. We drilled laterally and then step reamed the femoral neck and femoral head region. The lag screw was placed into position. We then tightened the proximal set screw, which was followed by releasing one turn off of the screw to allow for compression. Traction was released from the leg and then compression was applied. The nail was secured distally with a single screw off of the jig using fluoroscopic guidance. We took final fluoroscopic imaging which revealed that the fracture was in very good position. The hardware was in good position as well. The wounds were thoroughly irrigated and then closed with a 0 Vicryl followed by 2-0 Vicryl and marimar. The postoperative plan is to start 50% weightbearing. Additionally, we will initiate postoperative antibiotics for 24 hours along with DVT prophylaxis consisting of early mobilization, SCDs, compression stockings, and lovenox. IMPLANTS USED Synthes short trochanteric nail, size: 10 POSTP-OP PLAN OF ACTIVITY Antibiotics: Ancef, Antiocoagulation: Lovenox Weight bearing status: 50 % WB Dressing: Change daily, by RN starting postop day2 Dispo: expected discharge 2-3 days. Eduardo Castro Jr., MD Oct 06, 2016 8:34 pm
[2016-10-06] MEDS: ALPRAZolam 1 MG TAB PO PRN (21:00)
[2016-10-06] MEDS ORDERED: CALCIUM CARBONATE 500 MG CHEWABLE TAB PO PRN (21:30)
--- NOTE | 2016-10-06 22:06 | PD.ORT.PN ---
Subjective Subjective Remarks in bed, no issues, did well with PT today. no cp/sob Objective Vitals Vital Signs Date Time Temp Pulse Resp B/P Pulse Ox O2 Delivery O2 Flow Rate FiO2 10/06/16 18:37 Nasal Cannula 2.00 10/06/16 18:02 97 21 10/06/16 15:42 95.9 90 17 89/51 97 10/06/16 11:35 98.8 100 17 117/57 97 10/06/16 07:50 98 Nasal Cannula 2.00 10/06/16 07:19 98.7 82 17 112/59 96 10/06/16 04:00 98.4 88 16 110/59 97 10/06/16 00:00 98.4 82 16 136/63 98 I/O 10/05/16 10/05/16 10/05/16 10/06/16 10/06/16 10/06/16 07:00 15:00 23:00 07:00 15:00 23:00 Intake Total 750 ml 240 ml 1060 ml 480 ml Output Total 4300 ml 1250 ml 250 ml Balance -3550 ml -1010 ml 810 ml 480 ml Intake Oral 0 ml 240 ml 480 ml IV Total 1060 ml Packed Cells 250 ml Other 500 ml Output Urine Total 4250 ml 1250 ml 250 ml Estimated Blood Loss 50 ml # Voids 0 2 # Bowel Movements 0 0 0 Result Diagram: 10/06/16 0650 10/06/16 0650 Objective Remarks RLE: dressing with dried blood, no active bleeding or drainage, nvi. SILT distally, +ehl/fhl Assessment & Plan Assessment and Plan POD 1- right hip IMN no issues. doing well 50% WB dressing change pod 2 lovenox likely inpatient rehab as the patient's recently had surgery himself Eduardo Castro Jr., MD Oct 06, 2016 22:06
[2016-10-07] VITALS (7 sets, daily range): BP systolic 104–133; BP diastolic 58–71; PULSE 86–95; RESP 16–20; TEMP 96–98.1; O2SAT 94–98
[2016-10-07] MEDS: KETOROLAC TROMETHAMINE 30 MG/ML (IVP) VIAL IVP SCH ×2 (02:53→10:32)
[2016-10-07] MEDS: HYDROmorphone HCL PF 1 MG/ML VIAL IV PUSH PRN (02:53)
[2016-10-07] MEDS: ENOXAPARIN SODIUM 30 MG/0.3 ML SYRINGE SQ SCH ×2 (02:53→12:56)
[2016-10-07] MEDS: SODIUM CHLOR 0.9% 1000 ML INJ 1,000 ML IV SCH (02:54)
[2016-10-07] MEDS: HYDROmorphone HCL 4 MG TAB PO SCH ×3 (07:25→17:42)
[2016-10-07] MEDS: MILNACIPRAN 100 MG TAB PO SCH ×2 (08:38→20:02)
[2016-10-07] MEDS: POLYETHYLENE GLYCOL 17 GM PKG PO SCH (08:38)
[2016-10-07] MEDS: PANTOPRAZOLE SOD 40 MG DELAYED RELEASE TAB PO SCH (08:38)
[2016-10-07] MEDS: DOCUSATE SODIUM 100 MG CAP PO SCH ×2 (08:38→20:03)
[2016-10-07] MEDS: MULTIVITAMINS/MINERALS THERAPEUTIC TAB PO SCH ×2 (08:39→20:01)
[2016-10-07] MEDS: METAXALONE 800 MG TAB PO SCH ×3 (08:39→17:42)
[2016-10-07] MEDS: DOCUSATE SODIUM 50 MG/SENNA 8.6 MG TAB PO SCH ×2 (08:40→20:02)
[2016-10-07] MEDS: GABAPENTIN 300 MG CAP PO SCH ×3 (08:40→17:41)
--- NOTE | 2016-10-07 10:19 | HHI.DS ---
Discharge Summary Admission Date Oct 05, 2016 at 03:43 Discharge Date: Oct 07, 2016 Admitting Diagnosis right hip fracture, Anemia (1) Fracture, intertrochanteric, right femur ICD Code: S72.141A Diagnosis: Principal (2) Anemia ICD Code: D64.9 Diagnosis: Principal (3) Anxiety ICD Code: F41.9 Diagnosis: Secondary (4) Fibromyalgia ICD Code: M79.7 Diagnosis: Secondary (5) Osteoarthritis ICD Code: M19.90 Diagnosis: Secondary Procedures S/P Right hip intramedullary clotilde fixation on 10/05/[address] Gloria gardner Brief History - From Admission 71-year-old female with a medical history significant for chronic back pain, fibromyalgia, GERD present to the hospital after a fall at home. Patient could not allow elaborate on how exactly she fell. She reports she got up to go use the bathroom and missed the cabinet she normally lean on and fell on her right side. She immediately felt pain on the right hip and has been unable to ambulate since then. She denies head trauma or loss of consciousness. She denies any focal weakness except for inability to move the right leg due to pain. The patient has been given IV morphine with improvement of her symptoms. She reports a history of anemia but does not know the etiology. CBC/BMP: 10/06/16 0650 10/06/16 0650 Significant Findings Laboratory Tests Test 10/05/16 10/05/16 10/06/16 01:55 03:15 06:50 White Blood Count 13.1 TH/MM3 (4.0-11.0) Red Blood Count 3.43 MIL/MM3 3.96 MIL/MM3 (4.00-5.30) (4.00-5.30) Hemoglobin 7.2 GM/DL 9.1 GM/DL (11.6-15.3) (11.6-15.3) Hematocrit 23.2 % 28.3 % (35.0-46.0) (35.0-46.0) Mean Corpuscular Volume 67.8 FL 71.5 FL (80.0-100.0) (80.0-100.0) Mean Corpuscular Hemoglobin 21.0 PG 23.1 PG (27.0-34.0) (27.0-34.0) Mean Corpuscular Hemoglobin 31.0 % Concent (32.0-36.0) Red Cell Distribution Width 18.3 % 20.4 % (11.6-17.2) (11.6-17.2) Neutrophils (%) (Auto) 83.5 % (16.0-70.0) Lymphocytes (%) (Auto) 6.9 % (9.0-44.0) Monocytes (%) (Auto) 8.8 % (0.0-8.0) 15.7 % (0.0-8.0) Neutrophils # (Auto) 11.0 TH/MM3 (1.8-7.7) Lymphocytes # (Auto) 0.9 TH/MM3 (1.0-4.8) Monocytes # (Auto) 1.2 TH/MM3 1.1 TH/MM3 (0-0.9) (0-0.9) Ovalocytes 2+ (NORMAL) Prothrombin Time 9.4 SEC (9.8-11.6) Activated Partial 21.2 SEC Thromboplast Time (24.3-30.1) Sodium Level 135 MEQ/L (136-145) Blood Urea Nitrogen 6 MG/DL (7-18) 5 MG/DL (7-18) Random Glucose 108 MG/DL (74-106) Calcium Level 8.4 MG/DL 7.9 MG/DL (8.5-10.1) (8.5-10.1) Iron Level 12 MCG/DL (50-170) Total Iron Binding Capacity 490 MCG/DL (250-450) Percent Iron Saturation 2.4 % (20-50) Ferritin 6 NG/ML (8-252) Total Bilirubin 0.1 MG/DL (0.2-1.0) Troponin I LESS THAN 0.02 NG/ML (0.02-0.05) Albumin 3.2 GM/DL (3.4-5.0) Vitamin B12 Level GREATER THAN 2000 PG/ML (193-986) Urine Bacteria RARE /hpf (NONE) Potassium Level 3.4 MEQ/L (3.5-5.1) Imaging Last Impressions Knee X-Ray 10/05/16 0148 Signed Impressions: Service Date/Time: Wednesday, October 05, 2016 02:11 - CONCLUSION: Unremarkable examination of the right knee except for mild lateral joint space narrowing and osteophyte formation laterally. Thomas Ford MD Hip and Pelvis X-Ray 10/05/167 Signed Impressions: Service Date/Time: Wednesday, October 05, 2016 02:11 - CONCLUSION: Impacted right intertrochanteric fracture. Thomas Ford MD Chest X-Ray 10/05/16136 Signed Impressions: Service Date/Time: Wednesday, October 05, 2016 02:03 - CONCLUSION: Normal examination. Board Certified Radiologist. This report was verified electronically. MD BOWEN at Discharge GENERAL: This is a pleasant 71 yo F , appears younger than the stated age, well- nourished, well-developed patient, in no apparent distress. CARDIOVASCULAR: Regular rate and regular rhythm without murmurs, gallops, or rubs. RESPIRATORY: Clear to auscultation. Breath sounds equal bilaterally. No wheezes , rales, or rhonchi. GASTROINTESTINAL: Abdomen soft, non-tender, nondistended. Normal, active bowel sounds MUSCULOSKELETAL: Extremities without clubbing, cyanosis, or edema. NEURO: Alert & Oriented x4 to person, place, time, situation. Moves all ext x4 Pt update on day of discharge Pt reported feeling tired, vague pain, not "feeling well", and had an episode of reflux for which she was treated with "either candida seltzer of Tums yesterday. " Pt denied fever, nausea, vomiting, diarrhea; pt stated she has yet to have a bowel movement. Pt stated she wants to be more active and use her walker "to get around the room some." Pt noted she was unaware "how tired i am from the anemia." Pt had received iron infusions from 10/06/16 and levels were improved. Hospital Course Right hip fracture: Mechanical fall. She is on multiple anxiolytics including Xanax and Ambien, in addition to multiple pain medications including Dilaudid and Fioricet/codeine. Will advise weaning down some of these medications as tolerated. - Consulted orthopedic surgery. - Pain control may be a challenge as her med list include Dilaudid 4 mg 4 times a day, multiple anxiolytics and she has had chronic pain. S/P Right hip intramedullary clotilde fixation on 10/05/[address] Gloria gardner Microcytic anemia: Patient with severe iron deficiency anemia. Iron study reviewed. - requested pathologist to review the peripheral smear, reveal microcytic hypochromic anemia - S/P PRBC transfusion, HGB of 9.2 after transfusion - Received iron transfusion. Switch to PO iron supplement at DC -Monitor H/H- Fibromyalgia: - Continue Cymbalta and Savella Anxiety/depression: decreased Xanax to 1 mg every 6 hours as needed. Continue to monitor and titrate as needed. Continue amitriptyline Chronic back pain: - Patient currently on morphine IV as needed Constipation. Stool softeners, laxatives as needed. GERD: Continue Prevacid GI prophylaxis: PPI. Stool softener PRN constipation. DVT PPx: SCDs. Discussed with the patient, nurse, PT Improved. DC to SNF in stable condition to follow up as OP with PCP and consultants. Pt Condition on Discharge: Stable Discharge Disposition: Discharge to SNF Discharge Time: > 30 minutes Discharge Instructions DIET: Follow Instructions for: As Tolerated, No Restrictions Activities you can perform: Weight Bearing as Kaur Follow up Referrals: Orthopedics - 2 Weeks @ [facility] with Eduardo Castro Jr., MD PCP Follow-up - 3-5 Days New Medications: Docusate Sodium (Docusate Sodium) 100 Mg Cap 100 MG PO BID Prevent Constipation #60 Ref 0 CAP Ferrous Sulfate (Ferrous Sulfate) 325 Mg Tab 325 MG PO BIDPC Nutritional Supplement #30 Ref 0 TAB Oxycodone-Acetaminophen (Percocet) 5-325 mg Tab 1 TAB PO Q4H PRN PAIN #60 Ref 0 TAB Continued Medications: Alprazolam (Xanax) 2 Mg Tab 2.5 MG PO Q6HR Anxiety and/or Insomnia #20 Ref 0 TAB (This prescription has been renewed) Amitriptyline (Amitriptyline) 10 Mg Tab 10 MG PO HS Control Depression #30 Ref 0 TAB Zjkquqyiii-Bfxgksbphaanl-Ilirmvqw-Codeine (Fioricet-Codeine) 68-148-06-30 Mg Cap 1-2 CAP PO Q4H Do not exceed 6 capsules/day. PRN HEADACHE #10 Ref 0 CAP (This prescription has been renewed) Celecoxib (Celebrex) 200 Mg Cap 200 MG PO DAILY Pain Management Ref [address] [place] DR) 30 Mg Capdr 30 MG PO HS #30 Ref 0 CAP Estrogens, Conjugated (Premarin) 0.3 Mg Tab 0.3 MG PO DAILY Estrogen Supplements #30 Ref 0 TAB Gabapentin (Neurontin) 600 Mg Tab 600 MG PO TID #90 Ref 0 TAB Hydromorphone (Dilaudid) 4 Mg Tab 4 MG PO QID Pain Management #0 Ref 0 TAB (This prescription has been renewed) Lansoprazole (Prevacid) 30 Mg Capdr 30 MG PO DAILY Ref 0 CAP Metaxalone (Skelaxin) 800 Mg Tab 800 MG PO TID Muscle Spasm Ref 0 TAB Milnacipran (Savella) 50 Mg Tab 50 MG PO BID Fibromyalgia #60 Ref 0 TAB Zolpidem (Ambien) 10 Mg Tab 10 MG PO HS PRN INSOMNIA #10 Ref 0 TAB (This prescription has been renewed) Aparna Lyle MD Oct 07, 2016 10:19 Shane Emmanuel Jr. Oct 07, 2016 17:16
[2016-10-07] MEDS ORDERED: FERR325T PO (10:21)
[2016-10-07] MEDS ORDERED: BUTA1CAP2 PO (10:21)
[2016-10-07] MEDS ORDERED: AMBI10TA PO (10:21)
[2016-10-07] MEDS ORDERED: XANA2TAB2 PO (10:21)
[2016-10-07] MEDS ORDERED: DILA4TAB2 PO (10:21)
[2016-10-07] MEDS: SODIUM CHLORIDE 0.9% FLUSH 10 ML FLUSH IV FLUSH SCH (10:33)
[2016-10-07] MEDS: ALPRAZolam 1 MG TAB PO PRN ×2 (10:42→20:02)
[2016-10-07] MEDS ORDERED: BISACODYL EC 5 MG TABEC PO ONE (12:00)
[2016-10-07] MEDS: IRON SUCROSE INJ 200 MG in SODIUM CHLORIDE 0.9% INJ 100 ML IV SCH (16:12)
[2016-10-07] MEDS ORDERED: BISACODYL 10 MG SUPP RECTAL ONE (16:15)
--- NOTE | 2016-10-07 16:37 | HHI.PR ---
Subjective Remarks Pt reported feeling tired, vague pain, not "feeling well", and had an episode of reflux for which she was treated with "either candida seltzer of Tums yesterday. " Pt denied fever, nausea, vomiting, diarrhea; pt stated she has yet to have a bowel movement. Pt stated she wants to be more active and use her walker "to get around the room some." Objective Vitals Vital Signs Date Time Temp Pulse Resp B/P Pulse Ox O2 Delivery O2 Flow Rate FiO2 10/07/16 13:52 20 10/07/16 13:00 96.0 95 16 113/70 98 10/07/16 12:02 94 21 10/07/16 08:00 98.1 89 16 133/71 96 10/07/16 00:05 97.4 86 16 104/58 95 10/06/16 20:40 97.9 93 16 112/57 97 10/06/16 18:37 Nasal Cannula 2.00 10/06/16 18:02 97 21 I/O 10/06/16 10/06/16 10/06/16 10/07/16 10/07/16 10/07/16 07:00 15:00 23:00 07:00 15:00 23:00 Intake Total 1060 ml 480 ml 480 ml 240 ml Output Total 250 ml Balance 810 ml 480 ml 480 ml 240 ml Intake Oral 480 ml 480 ml 240 ml IV Total 1060 ml Output Urine Total 250 ml # Voids 2 3 1 # Bowel Movements 0 0 0 Result Diagram: 10/06/16 0650 10/06/16 0650 Imaging Last Impressions Knee X-Ray 10/05/16147 Signed Impressions: Service Date/Time: Wednesday, October 05, 2016 02:11 - CONCLUSION: Unremarkable examination of the right knee except for mild lateral joint space narrowing and osteophyte formation laterally. Thomas Ford MD Hip and Pelvis X-Ray 10/05/16136 Signed Impressions: Service Date/Time: Wednesday, October 05, 2016 02:11 - CONCLUSION: Impacted right intertrochanteric fracture. Thomas Ford MD Chest X-Ray 10/05/16136 Signed Impressions: Service Date/Time: Wednesday, October 05, 2016 02:03 - CONCLUSION: Normal examination. Board Certified Radiologist. This report was verified electronically. Objective Remarks GENERAL: SKIN: Warm and dry. HEAD: Normocephalic. EYES: No scleral icterus. No injection or drainage. NECK: Supple, trachea midline. No JVD or lymphadenopathy. CARDIOVASCULAR: Regular rate and rhythm without murmurs, gallops, or rubs. RESPIRATORY: Breath sounds equal bilaterally. No accessory muscle use. GASTROINTESTINAL: Abdomen soft, non-tender, nondistended. MUSCULOSKELETAL: No cyanosis, or edema. Bandage noted on right hip, clean and dry. BACK: Nontender without obvious deformity. Procedures No new procedures within past 48 hours. Medications and IVs Current Medications Medications (Trade) Dose Ordered Sig/[place]rence Route Start Time Stop Time Status Last Admin (NS 1000 ml Inj) 1,000 ml @ 42 mls/hr [id number] IV 10/05/16 03:59 10/05/16 08:23 (Tylenol) 650 mg Q4H PRN PO 10/05/16 04:00 (Zofran Inj) 4 mg Q6H PRN IVP 10/05/16 04:00 (Narcan Inj) 0.4 mg UNSCH PRN IV 10/05/16 04:00 (Elavil) 10 mg HS PO 10/05/16 21:00 10/06/16 20:32 (Cymbalta Dr) 30 mg HS PO 10/05/16 21:00 10/06/16 20:31 (Neurontin) 600 mg TID PO 10/05/16 09:00 10/07/16 12:50 (Skelaxin) 800 mg TID PO 10/05/16 09:00 10/07/16 12:50 (Protonix) 40 mg DAILY PO 10/05/16 09:15 10/07/16 08:38 (Savella) 50 mg BID PO 10/05/16 09:15 10/07/16 08:38 (Xanax) 1 mg Q6H PRN PO 10/05/16 07:00 10/07/16 10:42 (Pill Splitter) 1 ea UNSCH PRN OTHER 10/05/16 09:15 (NS Flush) 2 ml UNSCH PRN IV FLUSH 10/05/16 12:00 (NS Flush) 2 ml BID IV FLUSH 10/05/16 21:00 10/07/16 10:33 (Lovenox Inj) 30 mg Q12H SQ 10/06/16 02:00 10/07/16 12:56 (Tylenol) 650 mg Q6H PRN PO 10/05/16 12:00 (Phenergan) 25 mg Q4H PRN PO 10/05/16 12:00 (Theragran M Tab) 1 tab BID PO 10/06/16 21:00 12/05/16 20:59 10/07/16 08:39 (Colace) 100 mg BID PO 10/06/16 21:00 10/07/16 08:38 (Ambien) 5 mg HS PRN PO 10/05/16 12:00 10/06/16 23:30 (Dilaudid Pf Inj) 0.5 mg Q4H PRN IV PUSH 10/05/16 17:15 10/07/16 02:53 (Miralax) 17 gm DAILY PO 10/06/16 09:00 10/07/16 08:38 Senna/Docusate Sodium 2 tab 2 tab BID PO 10/06/16 09:00 10/07/16 08:40 (Venofer Inj/NS Inj) 110 ml @ 110 mls/hr Q24H IV 10/06/16 14:00 10/08/16 14:59 10/07/16 16:12 (Dilaudid) 4 mg Q6HR PO 10/06/16 18:00 10/07/16 12:52 (Tums Chew) 1,000 mg Q4H PRN PO 10/06/16 21:30 Urinary Catheter: No Vascular Central Line Catheter: No A/P Problem List: (1) Anemia ICD Code: D64.9 Status: Acute (2) Anxiety ICD Code: F41.9 Status: Acute (3) Fibromyalgia ICD Code: M79.7 Status: Acute (4) Osteoarthritis ICD Code: M19.90 Status: Acute Assessment and Plan Anemia, iron deficiency: Replacement of yesterday has led to some increase in her iron levels. Continued replacement to be ordered. Anxiety Continue home regimen. Fibromyalgia Continue home regimen. Osteoarthritis orthopedics addressing pain and recent right hip fracture repair. Discharge planning to determine if pt to go to rehabilitation, SNF, home, or other facility. Constipation: Stool softeners have not been effective. Pt may need additional assistance in order to have a bowel movement. Written by Shane Emmanuel, acting as scribe for Dr. Lyle on 10/07/16 at 16:36. This note was transcribed by scribe Shane RODRIGUEZ. I, Dr. Aparna Lyle personally performed the history, physical exam, and medical decision making; and confirmed the accuracy of the information in the transcribed note. Authenticated by Dr. Aparna Lyle on 10/07/16 at 16:36. Problem Qualifiers (1) Anemia: Qualified Code: D50.9 - Iron deficiency anemia, unspecified iron deficiency anemia type Shane Emmanuel Jr. Oct 07, 2016 16:37 Aparna Lyle MD Oct 07, 2016 17:04
[2016-10-07] MEDS: DULoxetine HCl DR 30 MG CAP PO SCH (20:00)
[2016-10-07] MEDS: AMITRIPTYLINE HCL 10 MG TAB PO SCH (20:02)
== END 2016-10-07 20:10 | DRG 482 ==
LOC: NEPE 01:21 → NEDA 03:43 → N06A 10:01
PROVIDERS: ADMIT Hospitalist; ATTEND Hospitalist
PROC: 30253N1 (ICD-10-PCS; 2016-10-05)
PROC: 0QS636Z Reposition Right Upper Femur with Intramedullary Internal Fixation Device, Percutaneous Approach (ICD-10-PCS; principal; 2016-10-05 12:40)
DX: S72.141A Displaced intertrochanteric fracture of right femur, initial encounter for closed fracture (principal); D50.9 Iron deficiency anemia, unspecified; W19.XXXA Unspecified fall, initial encounter; Y92.009 Unspecified place in unspecified non-institutional (private) residence as the place of occurrence of the external cause; G47.30 Sleep apnea, unspecified; G89.29 Other chronic pain; K21.9 Gastro-esophageal reflux disease without esophagitis; K59.00 Constipation, unspecified; M19.90 Unspecified osteoarthritis, unspecified site; M79.7 Fibromyalgia; F41.8 Other specified anxiety disorders; Z86.73 Personal history of transient ischemic attack (TIA), and cerebral infarction without residual deficits
CPT/HCPCS: 36430; 51702; 71010; 73502; 73564; 76000; 80048; 80053; 81001; 82550; 82552; 82607; 82728; 82746; 83540; 83550; 83880; 84484; 85025; 85060; 85610; 85730; 86850; 86900; 86901; 86920; 93005; 96361; 96374; 96375; C1713; J0131; J0690; J1100; J1170; J1650; J1756; J1885; J1940; J2175; J2250; J2270; J2370; J2405; J3010; J7030; J7050; P9016